=== PATIENT | male | born 1990 | race Caucasian/White ===

== ENCOUNTER 2018-01-11 21:32 | Emergency (ER) | payer OTHER ==
[2018-01-11] MEDS: HYDROCODONE/APAP (5/325) TAB PO (22:48)
[2018-01-11] MEDS: LIDOCAINE 1% (MDV) 10 ML INJ INFIL (22:49)
[2018-01-11] MEDS: DIPHTH/TET/ACEL PERTUSS (ADULT) 0.5 ML VIAL IM* (22:49)
[2018-01-12] MEDS: BACITRACIN 0.9 GM OINT TOP (00:11)
== END 2018-01-12 00:19 | disposition home or self-care (01) ==
LOC: FTE 01-12 00:19
DX: S61.215A Laceration without foreign body of left ring finger without damage to nail, initial encounter (principal); F17.210 Nicotine dependence, cigarettes, uncomplicated; W26.0XXA Contact with knife, initial encounter; Y92.9 Unspecified place or not applicable; Z23 Encounter for immunization
CPT/HCPCS: 12001; 73130-LT; 90471; 90715; 99283-25